=== PATIENT | female | born 1955 | race Caucasian/White ===

== ENCOUNTER 2017-08-26 08:29 | Outpatient (CLI) | payer BC | END 2017-08-26 08:30 | disposition home or self-care (01) | LOC: BICULT 08:29 | DX: N63.20 Unspecified lump in the left breast, unspecified quadrant (principal); Z80.3 Family history of malignant neoplasm of breast | CPT/HCPCS: G0206-LT; G0279 ==

== ENCOUNTER 2018-07-28 12:51 | Outpatient (CLI) | payer BC | END 2018-07-28 12:52 | disposition home or self-care (01) | LOC: BICMAMMO 12:51 | DX: Z12.31 Encounter for screening mammogram for malignant neoplasm of breast (principal) | CPT/HCPCS: 77063; 77067 ==

== ENCOUNTER 2019-08-10 12:28 | Outpatient (CLI) | payer MEDICARE ==
--- NOTE | 2019-08-10 17:00 | MMO ---
Bilateral MAMMO Bilat Screen [facility]. CLINICAL HISTORY: Patient is 64 years old and is seen for screening. The patient has the following family history of breast cancer: mother, at age 50, malignant (generic), AND UTERINE and maternal aunt, at age 24. The patient has no personal history of cancer. The patient has a history of bilateral mastopexy in April,, bilateral Breast reduction in April, and bilateral Excisional Biopsy - fibroadenoma. VIEWS: The views performed were: bilateral craniocaudal with tomosynthesis and bilateral mediolateral oblique with tomosynthesis. FILMS COMPARED: The present examination has been compared to prior imaging studies performed at [facility] on 04/23/2015, 04/29/2016, 08/26/2017 and 07/28/2018. This study has been interpreted with the assistance of computer-aided detection. MAMMOGRAM FINDINGS: The breasts are almost entirely fat. There are no suspicious masses, suspicious calcifications, or new areas of architectural distortion. IMPRESSION: THERE IS NO MAMMOGRAPHIC EVIDENCE OF MALIGNANCY. A ROUTINE FOLLOW-UP MAMMOGRAM IN 1 YEAR IS RECOMMENDED. THE RESULTS OF THIS EXAM WERE SENT TO THE PATIENT. ACR BI-RADS Category 1 - Negative MAMMOGRAPHY NOTE: 1. A negative mammogram report should not delay a biopsy if a dominant of clinically suspicious mass is present. 2. Approximately 10% to 15% of breast cancers are not detected by mammography. 3. Adenosis and dense breasts may obscure an underlying neoplasm. Reported by: VICKIE VALENZUELA MD Electonically Signed: [id number]
== END 2019-08-10 12:29 | disposition home or self-care (01) ==
LOC: BICMAMMO 12:28
PROVIDERS: ATTEND Internal Medicine
DX: Z12.31 Encounter for screening mammogram for malignant neoplasm of breast (principal); Z80.3 Family history of malignant neoplasm of breast; Z80.8 Family history of malignant neoplasm of other organs or systems; Z98.890 Other specified postprocedural states
CPT/HCPCS: 77063; 77067

== ENCOUNTER 2020-08-13 12:12 | Outpatient (CLI) | payer MEDICARE ==
--- NOTE | 2020-08-13 12:48 | MMO ---
Bilateral MAMMO Bilat Screen [facility]. CLINICAL HISTORY: Patient is 65 years old and is seen for screening. The patient has the following family history of breast cancer: mother, at age 50, malignant (generic), AND UTERINE and maternal aunt, at age 24. The patient has no personal history of cancer. The patient has a history of bilateral mastopexy in April,, bilateral Breast reduction in April, and bilateral Excisional Biopsy - fibroadenoma. VIEWS: The views performed were: bilateral craniocaudal with tomosynthesis and bilateral mediolateral oblique with tomosynthesis. FILMS COMPARED: The present examination has been compared to prior imaging studies performed at [facility] on 04/29/2016, 08/26/2017, 07/28/2018 and 08/10/2019. This study has been interpreted with the assistance of computer-aided detection. MAMMOGRAM FINDINGS: The breasts are almost entirely fat. There are no suspicious masses, suspicious calcifications, or new areas of architectural distortion. IMPRESSION: THERE IS NO MAMMOGRAPHIC EVIDENCE OF MALIGNANCY. A ROUTINE FOLLOW-UP MAMMOGRAM IN 1 YEAR IS RECOMMENDED. THE RESULTS OF THIS EXAM WERE SENT TO THE PATIENT. ACR BI-RADS Category 1 - Negative MAMMOGRAPHY NOTE: 1. A negative mammogram report should not delay a biopsy if a dominant of clinically suspicious mass is present. 2. Approximately 10% to 15% of breast cancers are not detected by mammography. 3. Adenosis and dense breasts may obscure an underlying neoplasm. Reported by: ANDREA COREAS MD Electonically Signed: [id number]
== END 2020-08-13 12:13 | disposition home or self-care (01) ==
LOC: BICMAMMO 12:12
PROVIDERS: ATTEND Internal Medicine
DX: Z12.31 Encounter for screening mammogram for malignant neoplasm of breast (principal); Z80.3 Family history of malignant neoplasm of breast; Z98.890 Other specified postprocedural states
CPT/HCPCS: 77063; 77067

== ENCOUNTER 2021-08-26 10:13 | Outpatient (CLI) | payer MEDICARE | END 2021-08-26 10:14 | disposition home or self-care (01) | LOC: BICMAMMO 10:13 | PROVIDERS: ATTEND Internal Medicine | DX: Z12.31 Encounter for screening mammogram for malignant neoplasm of breast (principal); Z91.89 Other specified personal risk factors, not elsewhere classified; Z98.82 Breast implant status | CPT/HCPCS: 77063; 77067 ==

== ENCOUNTER 2022-10-22 08:58 | Outpatient (CLI) | payer MEDICARE | END 2022-10-22 08:59 | disposition home or self-care (01) | LOC: BICMAMMO 08:58 | PROVIDERS: ATTEND Internal Medicine | DX: Z12.31 Encounter for screening mammogram for malignant neoplasm of breast (principal) | CPT/HCPCS: 77063; 77067 ==